=== PATIENT | female | born 2005 | race Caucasian/White ===

== ENCOUNTER 2024-07-14 13:43 | Outpatient (AMB) | payer MEDICAID, SELFPAY ==
--- NOTE | 2024-07-14 13:53 | AMB.OBINITIA ---
Vital Signs 07/14/24 14:19 Height 1.52 m Height Method Stated Weight 63.673 kg Weight Measurement Method Standing Scale BMI 27.3 BP 109/67 Blood Pressure Source Automatic Cuff Blood Pressure Location Right Upper Arm Position Sitting Respiration 17 Pulse 69 Pulse Source Monitor Temp 98.2 F Temp Source Temporal Artery Scan Pulse Oximetry (%) 99 Oxygen Delivery Method Room Air Allergies/Home Meds Allergies & Medications Allergies amoxicillin Allergy (Verified 07/14/24 14:11) Hallucinating Medication Reconciliation No Known Home Medications 07/14/24 [History Confirmed 07/14/24] Intake Visit Data Collection New Patient or Established: New Patient (never been to [facility]) Reason for Visit:: OBI TRANSFER Seen by Clinical Staff ONLY (RN/MA): No Multisensor Intelligence Officer Required: No Do You Feel Safe at Home: Yes Authorities Contacted: N/A PCP or OBGYN visit in last 3 months: No Hx Now: Yes Are you currently on any form of Control: No Pain Present Currently: No Pain Scale Used: Molina-Quintana/Numerical Pain scale:: 0 Smoking Status Smoking Status: Never smoker Questionnaires Covid-19 Vaccine Questionnaire Has patient been vacinated for Covid-19 Have you been vacinated for Covid-19: Yes PHQ-9 PHQ-2 Over the last 2 weeks, how often have you been bothered by any of the following problems? 1. Little interest or pleasure in doing things: not at all 2. Feeling down, depressed, or hopeless: not at all Total score: 0 PHQ-9 3. Trouble falling or staying asleep, or sleeping too much: Not at all 4. Feeling tired or having little energy: Not at all 5. Poor appetite or overeating: Not at all 6. Feeling bad about yourself - or that you are a failure or have let yourself or your family down: Not at all 7. Trouble concentrating on things, such as reading the newspaper or watching television: Not at all 8. Moving or speaking so slowly that other people could have noticed? - Or the opposite - being so fidgety or restless that you have been moving around a lot more than usual: not at all 9. Thoughts that you would be better off or of hurting yourself in some way: Not at all Total score: 0 If you checked off any problems, how difficult have these problems made it for you to do your work, take care of things at home, or get along with other people?: not difficult at all Source: Developed by Drs. Maykel Dean, Ramona Vazquez, Cl Hutchinson and colleagues, with an educational lazara from [employer]. Depression screen completed yes Social History Living Situation History Lives With: Family Housing: Apartment Tobacco History Smoking Status: Never smoker Second Hand Smoke Exposure: No Alcohol History Alcohol Intake: Never Domestic Abuse History Do You Feel Safe at Home: Yes History of Present Illness HPI Narrative Patient is a [id number] presenting for her first visit. She reports her last menstrual period was on May 26, estimating her gestational age at approximately 7 weeks. Ultrasound dates the between 5 and 6 weeks. Her estimated due date is March 02, 2025. Patient has been taking vitamins. She denies experiencing nausea or vomiting. Patient reports occasional cramping, primarily at night and on her right side when lying down, described as similar to menstrual cramps. She denies any vaginal bleeding. No other -related symptoms or concerns are reported. Family history includes a living mother, Yue, with no specific medical conditions mentioned. Review of systems is negative for nausea and vomiting. Patient reports positive for cramping on the side at nighttime, particularly when lying on the right side. OB Ultrasound OB Ultrasound Ultrasound technique: transabdominal Gestational sac assessment: Presence, location, size, shape: Ultrasound (July 14, 2024): Gestational sac present, measuring 0.9 cm. Estimated gestational age: 5.5-6 weeks. parts and heartbeat not yet visible. OB Initial Visit Menstrual History Menstrual reliability: definite Flow: heavy Menstrual regularity: regular Monthly: Yes Age at menarche: 12 On control pills at conception: No Date of positive home test: 06/29/24 OB History : 1 Para: 0 Hx # Pregnancies: 0 Hx Total # of Abortions (Spontaneous & Elective): 0 # of Living Children: 0 Infection History & Risk Evaluation History of STDs: none HIV risk evaluation: low risk Hepatitis B risk evaluation: low risk Patient or partner has history of Genital Herpes: No Varicella/chicken pox status: unknown Genetic Screening & History Genetic Screening/Teratology Counseling - Includes patient, baby's father, or anyone in either family with: 1. Patient's age 35 years or older as of estimated date of delivery: No 2. Thalassemia (Azerbaijani, South African, Mediterranean, or Background); MCV less than 80: No 3. Neural Tube Defect (Meningomyelocele, Spina Bifida, or Anencephaly): No 4. Congenital Heart Defect: Yes (BOTH PATIENT AND BABYS FATHER FAMILY) 5. Down Syndrome: Yes 6. Juan-Sachs (Ashkenazi Hinduism, Cajun, Djiboutian Trinidadian): No 7. Harry Disease (Ashkenazi Hinduism): No 8. Familial Dysautonomia (Ashkenazi Hinduism): No 9. Sickle Cell Disease or Trait (): No 10. Hemophilia or other blood disorders: No 11. Muscular Dystrophy: No 12. Cystic Fibrosis: No 13. Rinku's Chorea: No 14. Mental Retardation/Autism: No 16. Maternal Metabolic Disorder (EG,TYPE 1 Diabetes, PKU): Yes 17. Patient or baby's father had a child with defects not listed above: No 18. Recurrent loss or a stillbirth: No 19. Medications (including supplements, vitamins, herbs or otc drugs)/illicit/recreational drugs/alcohol since last menstrual period: No 20. Any other: No Infection History 1. Live with someone with TB or exposed to TB: No 2. Rash or viral illness since last menstrual period: No 3. Hepatitis B,C: No Other (see comments) Source: [employer] Exam General General Appearance: alert, in no apparent distress and healthy appearing Head Head exam: atraumatic Neck Neck exam: Present normal inspection and trachea midline Chest Chest inspection: Present normal inspection and symmetric chest wall rise External exam: Present normal external exam; Absent tenderness Neuro Neurological exam: Present oriented X3 Psych Psychiatric exam: Present normal affect and normal mood Office Procedures OB Clinic LOC & Office Proc's Nursing/Assessment Patient Status: Initial/New Patient OB Clinic Nursing Assessment: Medication Reconciliation, Update PMH in EMR and Vital Signs OB Clinic Coordination of Care: Complex Care and Chronic Disease 1-5, Consent,records obtained, informed consent, Education Simp Pt/Fam, Lab and Imaging orders and Staff clarify orders Special Needs: Heart tones New Patient Charge New Patient Point Assignment: [id number] New Patient Point Charge: SPECIAL EDUCATION SECRETARY Level 4 (6402-4806) Assessment & Plan Diagnosis / Problem List (1) with inconclusive viability: Status: Acute Plan Early Intrauterine : - Patient reports last menstrual period on May 26, initially suggesting 7 weeks gestation. - Transvaginal ultrasound revealed gestational sac measuring 0.9 cm, consistent with 5.5 to 6 weeks gestation. - No pole or cardiac activity visualized, as expected at this early stage. - Patient reports mild uterine cramping, particularly when lying on right side. - No vaginal bleeding reported. Plan: - Repeat transvaginal ultrasound in 1 week to assess for pole and cardiac activity. - Order serum quantitative hCG level. - Schedule follow-up ultrasound when hCG level reaches approximately 5000 mIU/mL. - Continue vitamins as currently taking. - Defer routine labs at this time due to early gestational age. - Reassure patient that current findings are consistent with normal early . - Educate patient that mild cramping without bleeding is normal in early .
[2024-07-14 14:19] VITALS: BP 109/67; PULSE 69; RESP 17; TEMP 36.8; O2SAT 99; BMI 27.3
== END 2024-07-14 14:29 | disposition home or self-care (01) ==
PROVIDERS: PCP Obstetrics & Gynecology; Referring Provider Obstetrics & Gynecology; Supervising Provider Obstetrics & Gynecology; Visit Provider Obstetrics & Gynecology
DX: O36.80X0 Pregnancy with inconclusive fetal viability, not applicable or unspecified (principal); Z3A.01 Less than 8 weeks gestation of pregnancy
CPT/HCPCS: 99204; G0463

== ENCOUNTER 2024-07-28 15:31 | Outpatient (AMB) | payer MEDICAID, SELFPAY ==
[2024-07-28 15:41] VITALS: BP 113/71; PULSE 66; RESP 17; TEMP 36.7; O2SAT 98; BMI 27.6
--- NOTE | 2024-07-28 15:41 | AMB.OBVISIT ---
Vital Signs 07/28/24 15:41 Height 1.52 m Height Method Stated Weight 63.957 kg Weight Measurement Method Standing Scale BMI 27.6 BP 113/71 Blood Pressure Source Automatic Cuff Blood Pressure Location Right Upper Arm Position Sitting Respiration 17 Pulse 66 Pulse Source Monitor Temp 98.0 F Temp Source Temporal Artery Scan Pulse Oximetry (%) 98 Oxygen Delivery Method Room Air Allergies/Home Meds Allergies & Medications Allergies amoxicillin Allergy (Verified 07/28/24 15:43) Hallucinating Medication Reconciliation No Known Home Medications 07/14/24 [History Confirmed 07/28/24] Intake Visit Data Collection New Patient or Established: Established Patient (seen at [facility] within 3 years) Reason for Visit:: OBC Seen by Clinical Staff ONLY (RN/MA): No Loft Patternmaker Required: No Do You Feel Safe at Home: Yes Authorities Contacted: N/A PCP or OBGYN visit in last 3 months: Yes Date of Last PCP or OBGYN visit: 07/14/24 Hx Now: Yes Are you currently on any form of Control: No Pain Present Currently: No Pain Scale Used: Molina-Quintana/Numerical Pain scale:: 0 Smoking Status Smoking Status: Never smoker Questionnaires Covid-19 Vaccine Questionnaire Has patient been vacinated for Covid-19 Have you been vacinated for Covid-19: No PHQ-9 PHQ-2 Over the last 2 weeks, how often have you been bothered by any of the following problems? 1. Little interest or pleasure in doing things: not at all 2. Feeling down, depressed, or hopeless: not at all Total score: 0 PHQ-9 3. Trouble falling or staying asleep, or sleeping too much: Not at all 4. Feeling tired or having little energy: Not at all 5. Poor appetite or overeating: Not at all 6. Feeling bad about yourself - or that you are a failure or have let yourself or your family down: Not at all 7. Trouble concentrating on things, such as reading the newspaper or watching television: Not at all 8. Moving or speaking so slowly that other people could have noticed? - Or the opposite - being so fidgety or restless that you have been moving around a lot more than usual: not at all 9. Thoughts that you would be better off or of hurting yourself in some way: Not at all Total score: 0 If you checked off any problems, how difficult have these problems made it for you to do your work, take care of things at home, or get along with other people?: not difficult at all Source: Developed by Drs. Maykel Dean, Ramona Vazquez, Cl Hutchinson and colleagues, with an educational lazara from [employer]. Depression screen completed yes Social History Living Situation History Lives With: Family Housing: Apartment Tobacco History Smoking Status: Never smoker Second Hand Smoke Exposure: No Alcohol History Alcohol Intake: Never Domestic Abuse History Do You Feel Safe at Home: Yes History of Present Illness HPI Narrative Patient presents for a one-week follow-up ultrasound. Her last menstrual period was on May 26, making her approximately 7 to 8 weeks gestation. At her previous visit, a pole was noted without heart tones, and she was advised to return in one week for a repeat transvaginal ultrasound. Since her last appointment, patient reports no bleeding, spotting, or other issues. She mentions having completed the lab work ordered at her previous visit, though the results were not available in the system. Today's ultrasound revealed a sac and pole, consistent with the previous scan, but no heartbeat was detected. Due to the limitations of the in-office ultrasound, patient is being referred for a more detailed ultrasound in the Radiology department or Emergency Room to better assess the 's status and obtain accurate measurements. She is a 1 para 0 patient. Her obstetric history is GPAL: A0 L0. Current gestational age is 7 to 8 weeks by last menstrual period. Reports no vaginal bleeding or spotting. Review of Systems Review of Systems Systems Reviewed: All systems reviewed, normal except as documented Care STEPHANIE Calculator Estimated Delivery Date Method Current WG Current Estimate 03/02/25 LMP (Uncertain) 9w 0d Exam Narrative Physical exam: Physical Examination: - Abdomen: Transvaginal ultrasound performed. sac visualized. pole observed without heart tones. Diagnostic Test Results and Labs: - Transvaginal ultrasound (date not specified): - Gestational sac present - pole visible - No heart tones detected - Serum beta-HCG (07.16.2024): 13,526 mIU General General Appearance: alert, in no apparent distress and healthy appearing Head Head exam: atraumatic Neck Neck exam: Present normal inspection and trachea midline Chest Chest inspection: Present normal inspection and symmetric chest wall rise External exam: Present normal external exam; Absent tenderness Neuro Neurological exam: Present oriented X3 Psych Psychiatric exam: Present normal affect and normal mood Office Procedures OB Clinic LOC & Office Proc's Nursing/Assessment Patient Status: Established Patient OB Clinic Nursing Assessment: Medication Reconciliation, Update PMH in EMR and Vital Signs OB Clinic Coordination of Care: Complex Care and Chronic Disease 1-5, Consent,records obtained, informed consent, Education Simp Pt/Fam and Staff clarify orders Special Needs: Heart tones Established Patient Charge Established Patient Point Assignment: 115 Established Patient Point Charge: EP Level 3 (80-115) Assessment & Plan Diagnosis / Problem List (1) with inconclusive viability: Status: Acute Plan Early with Absent Cardiac Activity Plan: - Refer patient to Emergency Department for immediate evaluation. - Order serum hCG. - Order detailed transvaginal ultrasound. - Await ED evaluation results and follow up accordingly. - Schedule one-week follow-up appointment. Pending Laboratory Results Plan: - Contact [facility] to retrieve pending blood test results. - Review results once obtained and integrate into overall assessment.
== END 2024-07-28 16:04 | disposition home or self-care (01) ==
LOC: HODSOBC 15:31
PROVIDERS: PCP Obstetrics & Gynecology; Referring Provider Obstetrics & Gynecology; Supervising Provider Obstetrics & Gynecology; Visit Provider Obstetrics & Gynecology
DX: O36.80X0 Pregnancy with inconclusive fetal viability, not applicable or unspecified (principal); Z3A.01 Less than 8 weeks gestation of pregnancy; Z88.0 Allergy status to penicillin
CPT/HCPCS: 99213; G0463

== ENCOUNTER 2024-07-28 16:06 | Emergency (ER) | payer MEDICAID, SELFPAY ==
[2024-07-28 16:08] VITALS: BMI 27.5
[2024-07-28 16:16] VITALS: BP 117/76; PULSE 88; RESP 18; TEMP 36.9; O2SAT 99
--- NOTE | 2024-07-28 16:23 | XR_ITS ---
Examination: OB Transvaginal ultrasound of the pelvis, complete Technique: Transvaginal sonographic images pelvis performed using kasper scale imaging Exam date and time: July 28, 2024 1631 hours INDICATIONS: No cardiac activity on auscultation by provider today. FINDINGS: Uterus 11.0 cm, pole 0.6 cm corresponds to 6 weeks 3 days gestational age Cardiac motion 82 bpm Amniotic sac appears small Adjacent subchorionic hemorrhage 14 x 9 x 12 mm Right ovary 3.8 cm arterial flow Left ovary 3.1 cm arterial flow IMPRESSION: Viable intrauterine gestation 6 weeks 3 days Cardiac motion 82 bpm Recommend short term follow-up transvaginal pelvic sonography given the subchorionic hemorrhage and the low heart rate
--- NOTE | 2024-07-28 16:24 | EDNOTE_ITS ---
<Statement entered by Keara Rice MD - 07/29/24 18:31> As co-signing physician, I was present and available for consult prn. I concur with the plan and care as documented by the midlevel provider. ED OB Contraction Preg RMI/HPI General Chief complaint: OB/Uterine Contractions Stated complaint: SENT BY DR. JOHNSTON FOR U/S FOR GESTATIONAL AGE Time Seen by Provider: 07/28/24 16:10 Arrival date/time: 07/28/24 16:06 RME / HPI RME / HPI Narrative: 19-year-old female patient was sent to us by [facility] for concern about demise. Patient is 1 para 0, about 7 weeks , went to PCP today and they cannot find a pole. No cardiac activity also noted. Currently patient is not having any symptoms. No vaginal bleeding or spotting no pelvic pain. Related Data Home Medications ?Medication ?Instructions ?Recorded ?Confirmed No Known Home Medications 07/14/2407/17 Allergies Allergy/AdvReac Type Severity Reaction Status Date / Time amoxicillin Allergy Hallucinati Verified 07/28/24 16:09 ng Review of Systems Review of Systems Narrative Review of Systems: Review of system reviewed and within normal limits except mentioned in HPI ED Exam Narrative Physical exam: VITAL SIGNS: Reviewed. GENERAL APPEARANCE: Alert and interactive, follows commands, no acute distress, HEAD AND FACE: Non-traumatic. ENT: PERRL, pink conjunctivitis, eyelid no trauma, Mucous membrane moist. NECK: Supple, nontender, no nuchal rigidity. CHEST: No tenderness, no crepitus, no paradoxical movement, no retractions. LUNGS: Clear, well ventilated, symmetric, no rales, no wheezing, no ronchi, no stridor, good breath sounds bilaterally. HEART: Regular rate, regular rhythm, no murmur, no gallops. ABDOMEN: Soft, positive bowel sounds, nondistended, no guarding, nontender, no rebound, no masses, RECTAL: Deferred. GENITAL: Deferred. NEUROLOGICAL: Gross motor function intact sensory function intact, Appropriate for age. MUSCULOSKELETAL: low back nontender, full range of motion. EXTREMITIES: Nontender, full range of motion. SKIN: Color pink, dry, no rash, no lacerations, no abrasions, no contusions. LYMPHATICS: Deferred. Course Quality Measures none Orders Category Date Time Status US OB transvaginal Stat Exams 07/28/24 16:23 Completed Beta HCG,Quantitative Stat Lab 07/28/24 17:08 Completed CBC Stat Lab 07/28/24 17:08 Completed CMP [Comprehensive Metabolic Panel] Stat Lab 07/28/24 17:08 Completed Urinalysis Stat Lab 07/28/24 16:31 Completed Vital Signs Vital signs: Vital Signs Temperature 98.5 F 07/28/24 16:16 Pulse Rate 88 07/28/24 16:16 Respiratory Rate 18 07/28/24 16:16 Blood Pressure 117/76 07/28/24 16:16 Pulse Oximetry (%) 99 07/28/24 16:16 Oxygen Delivery Method Room Air 07/28/24 16:16 OB/Uterine Contractions MDM Narrative MDM Narrative:: 19-year-old female patient was sent to us by [facility] for concern about demise. Patient is 1 para 0, about 7 weeks , went to PCP today and they cannot find a pole. No cardiac activity also noted. Currently patient is not having any symptoms. No vaginal bleeding or spotting no pelvic pain. Patient's workup came back unremarkable except for ultrasound that showed small subchorionic hemorrhage, single live intrauterine gestation about 6 weeks. No UTI. Patient was seen in the emergency room by her HAMMER SETTER Dr. Johnston Patient data External records reviewed:: None Clinical information provided by:: patient Social determinants that could affect healthcare access:: none Patient has the following chronic illnesses:: None How is presenting disease/condition affected by chronic disease/condition?: no chronic disease Evaluation data The following diagnostics were reviewed and interpreted by me:: lab results and radiology exam(s) Lab and/or radiology exams considered but not ordered:: None Interpretation Summary: See results MDM Medications / Prescriptions Medications or Prescriptions considered but not ordered:: None Medication administrations:: None Consultations Consultation(s) initiated? (list below): No Diagnosis OB Contractions Differential Diagnosis: other (, UTI, subchorionic hemorrhage) Most likely diagnosis given after review of the tests above:: , subchorionic hemorrhage Admission Indicated Admission indicated?: not indicated Explain why admission is indicated or not indicated:: Stable Admission Request Was there a request for admission?: No Disposition Plan Disposition Plan: Discharge Discharge Attestation Discharge Attestation: The patient and all family members were given an opportunity to ask questions and understood the discharge instructions. Discharge instructions specifically effects, indications for sooner follow up or return to the emergency department, and the expected course of current diagnosis. Patient condition: Stable Discharge Plan Plan Patient Disposition: HOME (Self Care) Discharge Disposition comment: Stable Prescriptions/Referrals Prescriptions/Med Rec: No Action No Known Home Medications Referrals: No Primary/Family,Physician [Primary Care Provider] - In 1 week Problem List Clinical Impression: , Subchorionic hemorrhage Patient/Caregiver Discharge Instructions Discharge Activity: activity as tolerated Education Materials: Your First Trimester ... Additional Instructions: Thank you for the opportunity for serving you today. You are stable for discharged . You are advised to: Follow-up with your [facility]TER as instructed Return to ED for worsening of symptoms Increase oral fluids Print Language: French Stand Alone Forms: Felicita Award Info., Patient Portal Info Letter PA/SAMUEL Supervising Physician LLOYD/SAMUEL Supervising Physician: MD Michael
[2024-07-28 16:45] LABS: Collection Type, Urine Clean Catch
[2024-07-28 17:19] LABS: Basophils # (Auto) 0.1 Thou/mm3 (0.0-0.2); Basophils % (Auto) 1 % (0-2.5); Eosinophils # (Auto) 0.5 Thou/mm3 (0.0-0.5); Eosinophils % (Auto) 6 % (0-10); Hematocrit 34.9 % (36.0-46.0); Hemoglobin 12.6 g/dL (12.0-16.0); Immature Granulocytes % (Auto) 0 % (0-0); Immature Granulocytes Auto 0.01 Thou/mm3 (0.00-0.00); Lymphocytes # (Auto) 2.4 Thou/mm3 (1.0-4.8); Lymphocytes % (Auto) 27 % (10-50); Mean Corpuscular HGB Conc 36.1 g/dl (31.0-37.0); Mean Corpuscular Hemoglobin 28.5 pg (25.0-35.0); Mean Corpuscular Volume 79 fL (80-100); Monocytes # (Auto) 0.5 Thou/mm3 (0.0-0.8); Monocytes % (Auto) 6 % (0-12); Neutrophils # (Auto) 5.4 Thou/mm3 (1.8-7.7); Neutrophils % (Auto) 61 % (37-80); Nucleated Red Blood Cell % 0 /100 WBC (0); Platelet Count 260 Thou/mm3 (140-440); RDW Standard Deviation 39.4 fL (36.4-46.3); Red Blood Count 4.42 Miln/mm3 (4.00-5.20); White Blood Count 8.9 Thou/mm3 (3.6-11.0)
[2024-07-28 17:19] LABS: Amorphous Crystals,Urine Present (Absent); Bilirubin,Urine Negative (Negative); Blood,Urine Negative (Negative); Clarity,Urine Turbid (Clear/Hazy); Color,Urine Lt-Yellow (Lt Yel-Yel); Glucose, Urine Negative (Negative); Ketones,Urine Negative (Negative); Leukocyte Esterase,Urine Negative (Negative); Nitrite,Urine Negative (Negative); Protein,Urine Trace (Neg - Trace); RBC,Urine 2 /hpf (0-3); Specific Gravity,Urine 1.024 (1.001-1.035); Squamous Epithelial Cell,Urine 22 /hpf (0-5); Urobilinogen,Urine Negative mg/dL (0.0-1.0); WBC,Urine 1 /hpf (0-5)
[2024-07-28 18:03] LABS: Alanine Aminotransferase 10 U/L (10-49); Albumin, Serum 4.4 gm/dL (3.5-5.0); Albumin/Globulin Ratio 1.7 (1.2-2.2); Alkaline Phosphatase 53 U/L (46-116); Anion Gap 9 (7-16); Aspartate Amino Transferase 18 U/L (0-34); BUN/Creatinine Ratio 9 Ratio (12-20); Bilirubin,Total 0.3 mg/dL (0.3-1.2); Blood Urea Nitrogen 6 mg/dL (9-23); Calcium 9.5 mg/dL (8.3-10.6); Calcium (Corrected) 9.5 mg/dL (8.5-10.1); Carbon Dioxide 24.2 mMol/L (20.0-31.0); Chloride 104 mMol/L (98-107); Creatinine (Component) 0.7 mg/dL (0.6-1.3); Estimated Creatinine Clearance 106.1 mL/min (>60); Globulin 2.6 gm/dL (2.3-3.5); Glucose 84 mg/dL (74-106); Osmolality,Calculated 270 (275-295); Potassium 4.1 mMol/L (3.4-5.1); Sodium 137 mMol/L (136-145); eGFR > 60 See Note
[2024-07-28 18:20] LABS: Beta HCG,Quantitative 78229 mIU/mL (<5.0)
[2024-07-28 18:27] VITALS: BP 115/69; PULSE 83; RESP 16; TEMP 36.8; O2SAT 97
== END 2024-07-28 18:40 | disposition home or self-care (01) ==
PROVIDERS: Nurse Practitioner Family; Emergency Provider Emergency Medicine
DX: O46.8X1 Other antepartum hemorrhage, first trimester (principal); Z3A.01 Less than 8 weeks gestation of pregnancy
CPT/HCPCS: 36415; 76817; 80053; 81001; 84702; 85025; 99284

== ENCOUNTER 2024-08-11 13:12 | Outpatient (AMB) | payer MEDICAID, SELFPAY ==
[2024-08-11 13:20] VITALS: BP 125/78; PULSE 79; RESP 17; TEMP 36.4; O2SAT 99; BMI 27.1
--- NOTE | 2024-08-11 13:20 | AMB.OBVISIT ---
Vital Signs 08/11/24 13:20 Height 1.52 m Height Method Measured Weight 63.106 kg Weight Measurement Method Standing Scale BMI 27.1 BP 125/78 Blood Pressure Source Automatic Cuff Blood Pressure Location Right Upper Arm Position Sitting Respiration 17 Pulse 79 Pulse Source Monitor Temp 97.5 F Temp Source Temporal Artery Scan Pulse Oximetry (%) 99 Oxygen Delivery Method Room Air Allergies/Home Meds Allergies & Medications Allergies amoxicillin Allergy (Verified 08/11/24 13:21) Hallucinating Medication Reconciliation mv-mn no.97-folic 180 mcg-dha 25 mg-herb no.293 25 mg chewable tablet (Alive Daily Support ) tab PO 08/11/24 [History Confirmed 08/11/24] Intake Visit Data Collection New Patient or Established: Established Patient (seen at [facility] within 3 years) Reason for Visit:: OBC Seen by Clinical Staff ONLY (RN/MA): No Web[employer] Architect Required: No Do You Feel Safe at Home: Yes Authorities Contacted: N/A PCP or OBGYN visit in last 3 months: Yes Date of Last PCP or OBGYN visit: 07/28/24 Hx Now: Yes Are you currently on any form of Control: No Pain Present Currently: No Pain Scale Used: Molina-Quintana/Numerical Pain scale:: 0 Smoking Status Smoking Status: Never smoker Questionnaires Covid-19 Vaccine Questionnaire Has patient been vacinated for Covid-19 Have you been vacinated for Covid-19: Yes PHQ-9 PHQ-2 Over the last 2 weeks, how often have you been bothered by any of the following problems? 1. Little interest or pleasure in doing things: not at all 2. Feeling down, depressed, or hopeless: not at all Total score: 0 PHQ-9 3. Trouble falling or staying asleep, or sleeping too much: Not at all 4. Feeling tired or having little energy: Not at all 5. Poor appetite or overeating: Not at all 6. Feeling bad about yourself - or that you are a failure or have let yourself or your family down: Not at all 7. Trouble concentrating on things, such as reading the newspaper or watching television: Not at all 8. Moving or speaking so slowly that other people could have noticed? - Or the opposite - being so fidgety or restless that you have been moving around a lot more than usual: not at all 9. Thoughts that you would be better off or of hurting yourself in some way: Not at all Total score: 0 If you checked off any problems, how difficult have these problems made it for you to do your work, take care of things at home, or get along with other people?: not difficult at all Source: Developed by Drs. Maykel Dean, Ramona Vazquez, Cl Hutchinson and colleagues, with an educational lazara from [employer]. Depression screen completed yes Social History Living Situation History Marital Status: Lives With: Family Housing: Apartment Tobacco History Smoking Status: Never smoker Second Hand Smoke Exposure: No Alcohol History Alcohol Intake: Never Domestic Abuse History Do You Feel Safe at Home: Yes GUIDE ESCORT: Past Medical History Past Medical History: No Hx Renal Disease, No Hx Diabetes Mellitus Type 1 and No Hx Diabetes Mellitus Type 2 History of Present Illness HPI Narrative Gema Aguilar, a 1 para 0 patient, presents for follow-up of early progression. At her last appointment on 07/28/2024, heart tones could not be visualized, prompting an emergency room visit. The ER evaluation revealed a serum HCG of 78,229 and a transvaginal ultrasound showing a viable intrauterine gestation at 6 weeks and 3 days, with cardiac motion at 82 beats per minute. A questionable subchorionic hemorrhage was noted. During today's visit, the patient reports no new symptoms or concerns. She denies experiencing cramping, spotting, nausea, or vomiting. The absence of nausea and vomiting is noted as not uncommon, though these symptoms typically occur in early and resolve by 10-12 weeks gestation. An internal ultrasound was attempted during the visit due to difficulty obtaining clear images. The clinician observed a gestational sac and pole with pulsation, but was unable to clearly visualize all expected structures. This was attributed to a possible unfavorable angle of the uterus. Review of Systems Gastrointestinal: Negative for nausea, vomiting. - Date: 07/28/2024 - Serum HC,229 - Transvaginal ultrasound: - Viable intrauterine gestation - Gestational age: 6 weeks and 3 days - cardiac motion: 82 beats per minute - Questionable subchorionic hemorrhage Care STEPHANIE Calculator Estimated Delivery Date Method Current WG Current Estimate 03/02/25 LMP (Uncertain) 11w 0d Exam General General Appearance: alert, in no apparent distress and healthy appearing Head Head exam: atraumatic Neck Neck exam: Present normal inspection and trachea midline Chest Chest inspection: Present normal inspection and symmetric chest wall rise External exam: Present normal external exam; Absent tenderness Neuro Neurological exam: Present oriented X3 Psych Psychiatric exam: Present normal affect and normal mood Office Procedures OB Clinic LOC & Office Proc's Nursing/Assessment Patient Status: Established Patient OB Clinic Nursing Assessment: Medication Reconciliation, Update PMH in EMR and Vital Signs OB Clinic Coordination of Care: Complex Care and Chronic Disease 1-5, Education Complex Pt/Fam, Consent,records obtained, informed consent, Lab and Imaging orders and Results/Orders obtained Special Needs: Heart tones Established Patient Charge Established Patient Point Assignment: 130 Established Patient Point Charge: EP Level 4 (120-155) Assessment & Plan Diagnosis / Problem List (1) with inconclusive viability: Status: Acute Plan Gema Aguilar is a 1 para 0 female presenting for follow-up of early progression after a previous emergency room visit for non-visualized heart tones. Early Intrauterine Assessment: Patient is at approximately 8 weeks gestation based on previous ultrasound findings. Last ultrasound on 07/28/2024 showed a viable intrauterine gestation at 6 weeks and 3 days with cardiac motion at 82 bpm. Today's in-office transvaginal ultrasound was inconclusive, showing a gestational sac and possible cardiac pulsation, but unable to clearly visualize all expected structures. This may be due to the angle of the uterus. A questionable subchorionic hemorrhage was noted on the previous ultrasound. Patient denies any current symptoms such as cramping or spotting. Plan: - Order formal transvaginal ultrasound through insurance authorization process - Schedule follow-up appointment for next week (Thursday or Thursday) to review ultrasound results - Continue routine care -related Nausea and Vomiting Assessment: Patient denies current nausea and vomiting. This is not concerning as some patients do not experience these symptoms. Plan: - Continue to monitor for onset of nausea and vomiting - Reassure patient that absence of these symptoms is not abnormal
== END 2024-08-11 14:17 | disposition home or self-care (01) ==
LOC: HODSOBC 13:12
PROVIDERS: Supervising Provider Obstetrics & Gynecology; Visit Provider Obstetrics & Gynecology
DX: O09.891 Supervision of other high risk pregnancies, first trimester (principal); O36.80X0 Pregnancy with inconclusive fetal viability, not applicable or unspecified; Z3A.08 8 weeks gestation of pregnancy; Z88.0 Allergy status to penicillin
CPT/HCPCS: 99214; G0463

== ENCOUNTER → 2024-08-18 | Outpatient (CLI) | payer MEDICAID, SELFPAY ==
--- NOTE | 2024-08-18 12:42 | XR_ITS ---
Examination: OB Transvaginal ultrasound of the pelvis, complete Technique: Transvaginal sonographic images pelvis performed using kasper scale imaging Exam date and time: August 18, 2024 1324 hours INDICATIONS: Cardiac motion 82 BPM on pelvic sonogram July 28, 2024 Findings: Uterus 10.2 cm, pole 0.8 cm correspondences 6 weeks 5 day gestational age No cardiac motion Right ovary 3.0 cm arterial flow Left ovary 3.2 cm arterial flow IMPRESSION: Intrauterine gestation, pole 0.8 cm correspondences 6 weeks 5 days gestational age, however no cardiac motion Recommend short-term follow-up to exclude demise
--- NOTE | 2024-08-18 12:42 | XR_ITS ---
Examination: Complete OB ultrasound, less than 14 weeks, transabdominal Date and time of exam: August 18, 2024 1313 hours INDICATIONS: Cardiac motion 82 BPM on sonogram July 28, 2024 Technique: Obstetrical ultrasound images less than 14 weeks performed via transabdominal imaging Findings: Uterus 10.7 cm pole 0.6 cm correspondences 6 weeks 3 days gestational age No cardiac activity Right ovary 2.8 cm arterial flow Left ovary 3.2 cm arterial flow IMPRESSION: Intrauterine gestation corresponding to 6 weeks 3 days gestational age, no cardiac motion Recommend continued follow-up to exclude demise
== END | disposition home or self-care (01) ==
PROVIDERS: PCP Obstetrics & Gynecology; Referring Provider Obstetrics & Gynecology; Visit Provider Obstetrics & Gynecology
DX: O36.80X0 Pregnancy with inconclusive fetal viability, not applicable or unspecified (principal); Z3A.01 Less than 8 weeks gestation of pregnancy
CPT/HCPCS: 76801; 76817

== ENCOUNTER 2024-08-31 08:48 | Outpatient (AMB) | payer MEDICAID, SELFPAY ==
[2024-08-31 09:02] VITALS: BP 108/67; PULSE 84; RESP 16; TEMP 36.5; O2SAT 99; BMI 27.5
--- NOTE | 2024-08-31 09:02 | OBCLNT_ITS ---
Vital Signs 08/31/24 09:02 Height 1.52 m Height Method Measured Weight 63.957 kg Weight Measurement Method Standing Scale BMI 27.5 BP 108/67 Blood Pressure Source Automatic Cuff Blood Pressure Location Left Upper Arm Position Sitting Respiration 16 Pulse 84 Pulse Source Monitor Temp 97.7 F Temp Source Oral Pulse Oximetry (%) 99 Oxygen Delivery Method Room Air Allergies/Home Meds Allergies & Medications Allergies amoxicillin Allergy (Verified 08/31/24 09:03) Hallucinating Medication Reconciliation mv-mn no.97-folic 180 mcg-dha 25 mg-herb no.293 25 mg chewable tablet (Alive Daily Support ) tab PO 08/11/24 [History Confirmed 08/31/24] Intake Visit Data Collection New Patient or Established: Established Patient (seen at [facility] within 3 years) Reason for Visit:: CARE [employer] Carpets Required: No Do You Feel Safe at Home: Yes Authorities Contacted: N/A PCP or OBGYN visit in last 3 months: Yes Hx Now: Yes Are you currently on any form of Control: No Pain Present Currently: No Pain Scale Used: Molina-Quintana/Numerical Pain scale:: 0 Smoking Status Smoking Status: Never smoker Questionnaires Covid-19 Vaccine Questionnaire Has patient been vacinated for Covid-19 Have you been vacinated for Covid-19: Yes PHQ-9 PHQ-2 Over the last 2 weeks, how often have you been bothered by any of the following problems? 1. Little interest or pleasure in doing things: not at all 2. Feeling down, depressed, or hopeless: not at all Total score: 0 PHQ-9 3. Trouble falling or staying asleep, or sleeping too much: Not at all 4. Feeling tired or having little energy: Not at all 5. Poor appetite or overeating: Not at all 6. Feeling bad about yourself - or that you are a failure or have let yourself or your family down: Not at all 7. Trouble concentrating on things, such as reading the newspaper or watching television: Not at all 8. Moving or speaking so slowly that other people could have noticed? - Or the opposite - being so fidgety or restless that you have been moving around a lot more than usual: not at all 9. Thoughts that you would be better off or of hurting yourself in some way: Not at all Total score: 0 Source: Developed by Drs. Maykel Dean, Ramona Vazquez, Cl Hutchinson and colleagues, with an educational alzara from [employer]. 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 She reports experiencing vaginal bleeding and passing tissue, which led to an emergency room visit where she was informed of the miscarriage. The patient also complains of new-onset headaches unlike any she has experienced before. She states she has been bleeding through her pads. She visited the emergency room due to this bleeding, where an abdominal ultrasound was performed. The ER staff informed her that she had a miscarriage. The patient reports experiencing pulling sensations but denies any fevers or chills. She mentions having headaches that are different from what she has experienced before, which have not been relieved by Tylenol. The patient's hormone levels were previously measured at 78,000 during her ER visit. However, a recent ultrasound showed no heartbeat, with the having stalled at 6 weeks and 5 days. The patient is currently taking cefuroxime, Tylenol, Zofran, and a topical cream as prescribed by the ER. She also takes vitamins. Care STEPHANIE Calculator Estimated Delivery Date Method Current WG Current Estimate 03/02/25 LMP (Uncertain) 13w 6d Exam General General Appearance: alert, in no apparent distress and healthy appearing Head Head exam: atraumatic Neck Neck exam: Present normal inspection and trachea midline Chest Chest inspection: Present normal inspection and symmetric chest wall rise External exam: Present normal external exam; Absent tenderness Neuro Neurological exam: Present oriented X3 Psych Psychiatric exam: Present normal affect and normal mood Office Procedures OB Clinic LOC & Office Proc's Nursing/Assessment Patient Status: Established Patient OB Clinic Nursing Assessment: Medication Reconciliation, Update PMH in EMR and Vital Signs OB Clinic Coordination of Care: Complex Care and Chronic Disease 1-5, Consent,records obtained, informed consent, Education Simp Pt/Fam, Lab and Imaging orders, Results/Orders obtained and Staff clarify orders Special Needs: Heart tones Established Patient Charge Established Patient Point Assignment: 135 Established Patient Point Charge: EP Level 4 (120-155) Assessment & Plan Diagnosis / Problem List (1) with inconclusive viability: Status: Acute Plan Miscarriage: - Confirmed by ultrasound showing no heartbeat. - hormone levels inconsistent with gestational age. - stalled at 6 weeks and 5 days gestation. - Patient reports bleeding through pads. - No fever or chills reported. - Patient experiencing headaches. Plan: - Obtain serum hCG level ? If level < 50, no further action needed ? If level > 50, perform ultrasound to assess for retained products of conception - Continue cefuroxime as prescribed by ER - Switch from Tylenol to ibuprofen 800 mg PO up to TID for pain management and to reduce bleeding - Continue vitamins - Monitor bleeding for up to one month ? Expect blood clots to taper off within first 7 days - Follow up with results in 1-2 days - If headaches persist, consider prescribing stronger pain medication - Anticipate return of menstrual cycle in approximately one month - Patient may attempt conception after next menstrual cycle if desired
== END 2024-08-31 09:17 | disposition home or self-care (01) ==
LOC: HODSOBC 08:48
PROVIDERS: PCP Obstetrics & Gynecology; Referring Provider Obstetrics & Gynecology; Supervising Provider Obstetrics & Gynecology; Visit Provider Obstetrics & Gynecology
DX: O03.9 Complete or unspecified spontaneous abortion without complication (principal); Z88.0 Allergy status to penicillin
CPT/HCPCS: 99214; G0463

== ENCOUNTER 2024-09-02 10:24 | Outpatient (AMB) | payer MEDICAID, SELFPAY ==
--- NOTE | 2024-09-02 12:58 | GYNCLNT_ITS ---
Allergies/Home Meds Allergies & Medications Allergies amoxicillin Allergy (Verified 08/31/24 09:03) Hallucinating Intake Visit Data Collection New Patient or Established: Established Patient (seen at [facility] within 3 years) Reason for Visit:: ER follow up, Labs Do You Feel Safe at Home: Yes Authorities Contacted: N/A PCP or OBGYN visit in last 3 months: Yes Smoking Status Smoking Status: Never smoker ECHO TECH: Past Medical History Past Medical History: No Hx Renal Disease, No Hx Diabetes Mellitus Type 1 and No Hx Diabetes Mellitus Type 2 Questionnaires PHQ-9 PHQ-2 Over the last 2 weeks, how often have you been bothered by any of the following problems? 1. Little interest or pleasure in doing things: not at all PHQ-9 8. Moving or speaking so slowly that other people could have noticed? - Or the opposite - being so fidgety or restless that you have been moving around a lot more than usual: not at all Total score: 0 Source: Developed by Drs. Maykel Dean, Ramona Vazquez, Cl Hutchinson and colleagues, with an educational lazara from [employer]. Social History Living Situation History Lives With: Family Housing: Apartment Tobacco History Smoking Status: Never smoker Second Hand Smoke Exposure: No Alcohol History Alcohol Intake: Never Domestic Abuse History Do You Feel Safe at Home: Yes History of Present Illness HPI Narrative Televisit for SAB follow up .Patient is being followed up for SAB. Her hormone level has been monitored and has decreased significantly from a previous measurement but remains elevated at 546. This level indicates that there may still be some residual tissue present, necessitating further evaluation. The patient is currently awaiting insurance approval for a stat ultrasound to confirm the complete passage of tissue and provide closure on her condition. There are no reported symptoms or concerns from the patient at this time. The healthcare team is actively working to schedule the ultrasound as soon as possible, potentially for the same day if insurance approval is received before 5 PM, or otherwise on the following Thursday. Exam Psych Psychiatric exam: Present normal affect and normal mood Assessment & Plan Diagnosis / Problem List (1) Threatened : Status: Acute (2) with inconclusive viability: Status: Acute Plan Retained products of conception: - Recent blood test shows hormone level of 546, decreased from previous measur ements but still elevated above target level of 50 or less. - Indicates likely presence of retained products of conception following recent loss. - Ultrasound necessary for further evaluation and confirmation. Plan: - Order stat ultrasound to assess for retained products of conception. ? Awaiting insurance approval. ? If approved before 5 PM today, ultrasound will be performed today; otherwise, likely scheduled for Thursday. - Follow up with patient once ultrasound results are available. - Reassure patient that there is no immediate cause for concern.
== END 2024-09-02 12:00 | disposition home or self-care (01) ==
LOC: HODSOBC 10:24
PROVIDERS: Supervising Provider Obstetrics & Gynecology; Visit Provider Obstetrics & Gynecology
DX: O03.9 Complete or unspecified spontaneous abortion without complication (principal)
CPT/HCPCS: 99212; G0463

== ENCOUNTER → 2024-09-30 | Outpatient (CLI) | payer MEDICAID, SELFPAY ==
--- NOTE | 2024-09-30 10:36 | XR_ITS ---
Examination: Complete OB ultrasound, less than 14 weeks, transabdominal Date and time of exam: September 30, 2024 1058 hours INDICATIONS: Status post miscarriage one month ago, hCG levels 50 several days ago clinical diagnosis retained products of conception Technique: Obstetrical ultrasound images less than 14 weeks performed via transabdominal imaging Findings: Uterus 9.0 cm No intrauterine gestation Endometrial stripe 1.2 cm heterogeneous in echogenicity Right ovary 2.8 cm arterial flow small follicles Left ovary 3.2 cm arterial flow 14 mm cyst and small follicles IMPRESSION: Recommend follow-up transvaginal pelvic sonography to confirm retained products of conception
== END | disposition home or self-care (01) ==
LOC: CDIM 09:46
PROVIDERS: Referring Provider Obstetrics & Gynecology; Visit Provider Obstetrics & Gynecology
DX: O20.0 Threatened abortion (principal); O09.91 Supervision of high risk pregnancy, unspecified, first trimester
CPT/HCPCS: 76801